=== PATIENT | male | born 1990 | race Caucasian/White ===

== ENCOUNTER 2020-06-23 07:58 | Emergency (ER) | payer BC ==
[~2020-06-23] VITALS: Ht 195.6 cm; Wt 79.4 kg
[2020-06-23 08:11] VITALS: BP 132/78
--- NOTE | 2020-06-23 10:16 | NUR ---
Patient discharged to home in stable condition. Written and verbal after care instructions given. Patient verbalizes understanding of instruction.
== END 2020-06-23 10:16 | disposition home or self-care (01) ==
LOC: ER 07:58
DX: R10.31 Right lower quadrant pain (principal); N50.811 Right testicular pain
CPT/HCPCS: 76870-TC